=== PATIENT | male | born 1950 | race Caucasian/White ===

== ENCOUNTER 2020-02-23 16:00 | Inpatient (IN) | payer MEDICARE, OTHER ==
[~2020-02-23] VITALS: Ht 177.8 cm; Wt 79.4 kg
[~2020-02-23 16:00] MED LIST: CLOPIDOGREL75 MG PO; CO Q-10100 MG PO; OMEPRAZOLE20 M1 PO; TRIBENZOR 40-51 EAC1 PO; VITAMIN D35000 UNI1 PO; WELCHOL625 MG PO; ZETIA10 MG PO
[2020-02-23] MEDS ORDERED: ONDANSETRON HCL INJ 2MG/ML 2ML 2 MG/ML VIAL IV ONE (16:40)
[2020-02-23] MEDS ORDERED: SODIUM CHLORIDE 0.9% 1000ML 1,000 ML IV STA (16:40)
[2020-02-23] MEDS ORDERED: PANTOPRAZOLE 40 MG 10ML VIAL IV ONE (16:40)
[2020-02-23] MEDS ORDERED: CEFTRIAXONE SOD 1 GM/NS 50 ML 50 ML IV SCH (16:45)
[2020-02-23] MEDS ORDERED: AZITHROMYCIN 500MG/NS 250 ML 250 ML IV SCH (16:45)
[2020-02-23 17:50] LABS: BASOPHILS % 0.1 % (0.0-1.0); EOSINOPHILS % 0.3 % (0.0-6.0); HEMATOCRIT 45.7 % (38.2-49.6); HEMOGLOBIN 14.8 g/dL (14.0-18.0); LYMPHOCYTES # (AUTO) 0.4 (1.0-3.2); LYMPHOCYTES % 4.1 % (18.0-39.1); MEAN CORPUSCULAR HEMOGLOBIN 30.3 pg (28-32); MEAN CORPUSCULAR HGB CONC 32.4 g/dL (31-35); MEAN CORPUSCULAR VOLUME 93.6 fL (81-99); MONOCYTES # (AUTO) 0.3 (0.2-0.8); MONOCYTES % 3.8 % (4.4-11.3); NEUTROPHILS % 91.4 % (38.7-80.0); PLATELET COUNT 200 x10e3/uL (140-360); RED BLOOD COUNT 4.88 x10e6/uL (4.3-5.7)
[2020-02-23 17:59] LABS: INR 0.93; PARTIAL THROMBOPLASTIN TIME 23.3 seconds (23.8-35.5)
[2020-02-23 18:06] LABS: ALBUMIN 3.9 g/dL (3.5-5.0); ALBUMIN/GLOBULIN RATIO 1.1 (0.8-2.0); ANION GAP 13.1 mmol/L (8-16); CALCIUM 9.5 mg/dL (8.4-10.2); CREATININE, SERUM 1.29 mg/dL (0.72-1.25); MAGNESIUM 1.8 MG/DL (1.3-2.1); POTASSIUM 4.1 mmol/L (3.5-5.1)
[2020-02-23 18:13] LABS: CREATINE KINASE MB 1.2 ng/mL (0-5.0)
[2020-02-23 18:19] LABS: B-TYPE NATRIURETIC PEPTIDE2 85.4 pg/mL (0-100)
--- NOTE | 2020-02-23 18:54 | Diagnostic Imaging Report ---
EXAMINATION: CHEST SINGLE (PORTABLE) INDICATION: ^COUGH FEVER ^[id number] ^[id number] COMPARISON: None FINDINGS: AP view TUBES and LINES: None. LUNGS/PLEURA: Lungs are well inflated. Left basilar and cardiophrenic angle opacity could be due to pneumonia and/or effusion. HEART AND MEDIASTINUM: The cardiomediastinal silhouette is unremarkable. BONES AND SOFT TISSUES: No acute osseous lesion. Soft tissues are unremarkable. UPPER ABDOMEN: No free air under the diaphragm. IMPRESSION: Left basilar and cardiophrenic angle opacity could be due to pneumonia and/or effusion. Signed by: Salomón Minor MD on 02/23/2020 6:50 PM
--- NOTE | 2020-02-23 19:48 | Emergency Department Note ---
History of Present Illnes History of Present Illness Chief Complaint: COVID PUI History of Present Illness This is a 69 year old male FROM HOME WITH COMPLAINTS OF FEVER, CHILLS, AND DIARRHEA STARTING YESTERDAY; PATIENT REPORTS TAKING TYLENOL AT 1200 TODAY . Historian: Patient Arrival Mode: Car Onset (how long ago): day(s) (1) Location: NONE Quality: FEVER, WEAKNESS, DIARRHEA Radiation: Reports non-radiation Severity: mild Onset quality: sudden Duration (how long): day(s) (1) Timing of current episode: intermittent Progression: waxing and waning Chronicity: new Context: Denies recent illness, Denies recent surgery Relieving factors: none Exacerbating factors: none Associated symptoms: Reports cough, Reports fever/chills, Reports other (DI ARRHEA) Treatments prior to arrival: antipyretic Past Medical/Family History Physician Review I have reviewed the patient's past medical and family history. Any updates have been documented here. Past Medical History Recent Fever: Yes Clinical Suspicion of Infectio: Yes New/Unexplained Change in Ment: No Past Medical History: Hypertension, MD, GERD Past Surgical History: CABG Social History Smoking Cessation: Former smoker Alcohol Use: Social Any Illegal Drug Use: Yes TB Exposure/Symptoms: No Physically hurt or threatened: No Family History Family history of heart diseas: No Other family history HTN Other Last Tetanus: UNKNOWN Any Pre-Existing Lines (PICC,: No Is patient up to date on immun: Yes Last Flu: unknown Last Pneumovax: unknown Review of Systems Review of Systems Constitutional: Reports as per HPI EENTM: Reports no symptoms Cardiovascular: Reports no symptoms Respiratory: Reports as per HPI Gastrointestinal: Reports as per HPI Genitourinary: Reports no symptoms Musculoskeletal: Reports no symptoms Integumentary: Reports no symptoms Neurological: Reports no symptoms Psychological: Reports no symptoms Endocrine: Reports no symptoms Hematological/Lymphatic: Reports no symptoms Physical Exam Related Data Allergies: Coded Allergies: iodine (Verified Allergy, Mild, ITCHING, 04/29/16) Triage Vital Signs Vital Signs Date Time Temp Pulse Resp B/P (MAP) Pulse Ox O2 Delivery O2 Flow Rate FiO2 02/23/20 16:23 102.1 108 24 172/93 96 Vital signs reviewed: Yes Physical Exam CONSTITUTIONAL Constitutional: Present well-developed, Present well-nourished HENT HENT: Present normocephalic, Present atraumatic, Present oropharynx clear/moist, Present nose normal HENT L/R: Present left ext ear normal, Present right ext ear normal EYES Eyes: Reports PERRL, Reports conjunctivae normal NECK Neck: Present ROM normal PULMONARY Pulmonary: Present effort normal, Present breath sounds normal CARDIOVASCULAR Cardiovascular: Present regular rhythm, Present heart sounds normal, Present capillary refill normal, Present tachycardia (101) GASTROINTESTINAL Abdominal: Present soft, Present nontender, Present bowel sounds normal GENITOURINARY Genitourinary: Present exam deferred SKIN Skin: Present warm, Present dry MUSCULOSKELETAL Musculoskeletal: Present ROM normal NEUROLOGICAL Neurological: Present alert, Present oriented x 3, Present no gross motor or sensory deficits PSYCHOLOGICAL Psychological: Present mood/affect normal, Present judgement normal Results Laboratory Result Diagram: 02/23/20172902/23/201729 Laboratory Laboratory Tests Test 02/23/20 17:44 02/23/20 17:30 White Blood Count 8.77 x10e3/uL (4.8-10.8) Red Blood Count 4.88 x10e6/uL (4.3-5.7) Hemoglobin 14.8 g/dL (14.0-18.0) Hematocrit 45.7 % (38.2-49.6) Mean Corpuscular Volume 93.6 fL (81-99) Mean Corpuscular Hemoglobin 30.3 pg (28-32) Mean Corpuscular Hemoglobin Concent 32.4 g/dL (31-35) Red Cell Distribution Width 14.0 % (11.7-14.4) Platelet Count 200 x10e3/uL (140-360) Neutrophils (%) (Auto) 91.4 % (38.7-80.0) Lymphocytes (%) (Auto) 4.1 % (18.0-39.1) Monocytes (%) (Auto) 3.8 % (4.4-11.3) Eosinophils (%) (Auto) 0.3 % (0.0-6.0) Basophils (%) (Auto) 0.1 % (0.0-1.0) Neutrophils # (Auto) 8.0 (2.1-6.9) Lymphocytes # (Auto) 0.4 (1.0-3.2) Monocytes # (Auto) 0.3 (0.2-0.8) Eosinophils # (Auto) 0.0 (0.0-0.4) Basophils # (Auto) 0.0 (0.0-0.1) Absolute Immature Granulocyte (auto 0.03 x10e3/uL (0-0.1) Prothrombin Time 13.0 seconds (11.9-14.5) Prothromb Time International Ratio 0.93 Activated Partial Thromboplast Time 23.3 seconds (23.8-35.5) Sodium Level 137 mmol/L (136-145) Potassium Level 4.1 mmol/L (3.5-5.1) Chloride Level 108 mmol/L (98-107) Carbon Dioxide Level 20 mmol/L (22-29) Anion Gap 13.1 mmol/L (8-16) Blood Urea Nitrogen 20 mg/dL (7-26) Creatinine 1.29 mg/dL (0.72-1.25) Estimat Glomerular Filtration Rate 55 ML/MIN (60-) BUN/Creatinine Ratio 16 (6-25) Glucose Level 117 mg/dL (74-118) Lactic Acid Level 1.1 mmol/L (0.5-2.0) Calcium Level 9.5 mg/dL (8.4-10.2) Magnesium Level 1.8 MG/DL (1.3-2.1) Total Bilirubin 0.5 mg/dL (0.2-1.2) Aspartate Amino Transf (AST/SGOT) 17 IU/L (5-34) Alanine Aminotransferase (ALT/SGPT) 17 IU/L (0-55) Alkaline Phosphatase 37 IU/L (40-150) Creatine Kinase 85 IU/L (30-200) Creatine Kinase MB 1.20 ng/mL (0-5.0) Troponin I 0.023 ng/mL (0-0.300) B-Type Natriuretic Peptide 85.4 pg/mL (0-100) Total Protein 7.6 g/dL (6.5-8.1) Albumin 3.9 g/dL (3.5-5.0) Globulin 3.7 g/dL (2.3-3.5) Albumin/Globulin Ratio 1.1 (0.8-2.0) Lab results reviewed: Yes Laboratory comments COVID 19 TEST NEGATIVE Imaging Imaging results reviewed: Yes Impressions EXAMINATION: CHEST SINGLE (PORTABLE) INDICATION: ^COUGH FEVER ^[id number] ^[id number] COMPARISON: None FINDINGS: AP view TUBES and LINES: None. LUNGS/PLEURA: Lungs are well inflated. Left basilar and cardiophrenic angle opacity could be due to pneumonia and/or effusion. HEART AND MEDIASTINUM: The cardiomediastinal silhouette is unremarkable. BONES AND SOFT TISSUES: No acute osseous lesion. Soft tissues are unremarkable. UPPER ABDOMEN: No free air under the diaphragm. IMPRESSION: Left basilar and cardiophrenic angle opacity could be due to pneumonia and/or effusion. Signed by: Salomón Mosher MD on 02/23/2020 6:50 PM Dictated By: SALOMÓN MOSHER MD 49 Transcribed By: IMER on 02/23/201849 Procedures 12 Lead ECG Interpretation ECG Interpretation : ECG: ECG 1 Personal Fitness Trainer: Interpreted by ED physician Date: Feb 23, 2020 Time: 19:01 Rhythm: sinus tachycardia Ectopy: frequent PVC's Rate: tachycardia BPM: 107 QRS axis: normal ST segments normal: Yes T waves normal: Yes Q waves: III, V1 Clinical Impression: abnormal ECG Assessment & Plan Medical Decision Making MDM PT WITH FEVER, CHILLS, DIARRHEA, AND DRY COUGH CBC, CMP, EKG, CXR, LACTIC ACID, CARDIAC ENZYMES, COVID 19, BLOOD CULTURE, UA, URINE CULTURE ORDERED TO EVAL FOR PNEUMONIA, COVID 19, MYOCARDIAL INFARCTION, U TI, ELECTROLYTE ABNORMALITY ROCEPHIN 1 GRAM IV ORDERED ZITHROMAX 500 MG IV ORDERED 1 LITER NS IV BOLUS ORDERED INITIAL LACTIC ACID 1.1 PT WITH PNEUMONIA, I SPOKE WITH DR VU, ADMIT TO INPATIENT Assessment & Plan Final Impression: (1) Fever (2) Diarrhea (3) Pneumonia Depart Disposition: HOME, SELF-CARE Last Vital Signs Date Time Temp Pulse Resp B/P (MAP) Pulse Ox O2 Delivery O2 Flow Rate FiO2 02/23/20 17:54 100.0 99 18 156/77 97 Home Meds Reported Medications Omeprazole (OMEPRAZOLE) 20 Mg Tablet., 20 MG PO DAILY 04/30/16 Ubidecarenone (CO Q-10) 100 Mg Capsule, 100 MG PO DAILY 04/30/16 Cholecalciferol (Vitamin D3) (VITAMIN D3) 5,000 Unit Tablet, 1 TAB PO DAILY 04/30/16 Ezetimibe (ZETIA) 10 Mg Tablet, 10 MG PO DAILY, #30 TAB 04/30/16 Colesevelam Hcl (WELCHOL) 625 Mg Tablet, 625 MG PO DAILY, #30 TAB 04/30/16 Olmesartan Med/Amlodipine/Hctz (TRIBENZOR 40-5-25 MG TABLET) 1 Each Tablet, 1 TAB PO DAILY 04/30/16 Clopidogrel Bisulfate (CLOPIDOGREL) 75 Mg Tablet, 75 MG PO DAILY, #30 TAB 04/30/16 Medications in the ED Pantoprazole Sodium 40 mg ONCE ONCE IV Last administered on 02/23/20at 19:00; Admin Dose 40 MG; Start 02/23/20 at 16:40; Stop 02/23/20 at 16:52; Status DC Ondansetron HCl 4 mg ONCE ONCE IV Last administered on 02/23/20 19:10; Admin Dose 4 MG; Start 02/23/20 at 16:40; Stop 02/23/20 at 16:52; Status DC Sodium Chloride 1,000 ml @ 0 mls/hr Q0M STAT IV Last administered on 02/23/20 19:15; Admin Dose 1,000 MLS/HR; Start 02/23/20 at 16:40; Stop 02/23/20 at 16:52; Status DC Ceftriaxone Sodium 50 ml @ 100 mls/hr Q24H IV Last administered on 02/23/20at 19:32; Admin Dose 100 MLS/HR; Start 02/23/20 at 16:45; Stop 03/01/20 at 16:44 Azithromycin 250 ml @ 200 mls/hr DAILY IV ; Start 02/23/20 at 16:45; Stop 03/01/20 at 16:44 MADAI FLORES MD Feb 23, 2020 19:47
[2020-02-23] MEDS ORDERED: ACETAMINOPHEN 325 MG TAB PO PRN (22:45)
[2020-02-23] MEDS ORDERED: SODIUM CHLORIDE 0.9% 1000ML 1,000 ML IV SCH (22:45)
[2020-02-23 23:31] LABS: BILIRUBIN,URINE NEGATIVE (NEGATIVE); CLARITY,URINE CLEAR (CLEAR); COLOR,URINE YELLOW (YELLOW); KETONES,URINE NEGATIVE (NEGATIVE); LEUKOCYTE ESTERASE ,URINE NEGATIVE (NEGATIVE); NITRITE,URINE NEGATIVE (NEGATIVE); URINE UROBILINOGEN 0.2 mg/dL (0.2 - 1)
[2020-02-23 23:32] LABS: PROTEIN,URINE DIPSTICK >=300 (NEGATIVE)
[2020-02-23 23:43] LABS: BACTERIA,URINE MANY /HPF; EPITHELIAL CELLS,URINE FEW /LPF; MUCUS,URINE FEW (RARE)
[2020-02-24] VITALS (9 sets, daily range): BP systolic 94–136; BP diastolic 45–84
[2020-02-24] MEDS ORDERED: SODIUM CHLORIDE 0.9% 1000ML 1,000 ML IV ONE (00:15)
--- NOTE | 2020-02-24 01:30 | NUR ---
Patient received from ER via stretcher. AAO x 3. Patient had no complaints of pain. Respirations even and non-labored. Admission history obtained. Initial physical assessment performed. Patient oriented to room, call light and plan of care. Safety measures implemented. Patient instructed to call for assistance when needed. Call light within reach.
[2020-02-24] MEDS ORDERED: MONTELUKAST SOD10 MG PO (03:15)
[2020-02-24] MEDS ORDERED: METOPROLOL SUCC25 MG PO (03:15)
[2020-02-24] MEDS ORDERED: COQ-10100 MG PO (03:15)
[2020-02-24] MEDS ORDERED: ALLOPURINOL300 MG PO (03:15)
[2020-02-24] MEDS ORDERED: DEXILANT60 MG PO (03:15)
[2020-02-24] MEDS ORDERED: LISINOPRIL10 MG PO (03:15)
[2020-02-24] MEDS ORDERED: ASPIRIN325 MG PO (03:15)
[2020-02-24] MEDS ORDERED: FENOFIBRATE145 MG PO (03:15)
[2020-02-24] MEDS ORDERED: XYZAL5 MG PO (03:15)
[2020-02-24] MEDS ORDERED: FUROSEMIDE40 MG PO (03:15)
--- NOTE | 2020-02-24 07:00 | NUR ---
Walking rounds done. Patient resting comfortably. Shift report given to oncoming nurse.
--- NOTE | 2020-02-24 07:00 | NUR ---
Received bedside shift from off going night nurse. patient in stable condition, no s/s of distress noted. Telemetry applied.Bed in lowest position and locked. Call light within reach.
[2020-02-24 07:01] LABS: BASOPHILS % 0.3 % (0.0-1.0); EOSINOPHILS % 0.5 % (0.0-6.0); HEMATOCRIT 39.2 % (38.2-49.6); HEMOGLOBIN 12.4 g/dL (14.0-18.0); LYMPHOCYTES # (AUTO) 0.6 (1.0-3.2); LYMPHOCYTES % 10.4 % (18.0-39.1); MEAN CORPUSCULAR HEMOGLOBIN 30.2 pg (28-32); MEAN CORPUSCULAR HGB CONC 31.6 g/dL (31-35); MEAN CORPUSCULAR VOLUME 95.4 fL (81-99); MONOCYTES # (AUTO) 0.3 (0.2-0.8); MONOCYTES % 5.6 % (4.4-11.3); NEUTROPHILS # (AUTO) 4.9 (2.1-6.9); NEUTROPHILS % 82.9 % (38.7-80.0); PLATELET COUNT 156 x10e3/uL (140-360); RED BLOOD COUNT 4.11 x10e6/uL (4.3-5.7); RED CELL DISTRIBUTION WIDTH 14.1 % (11.7-14.4)
[2020-02-24 07:26] LABS: ANION GAP 9.1 mmol/L (8-16); CALCIUM 8.2 mg/dL (8.4-10.2); CREATININE, SERUM 1.23 mg/dL (0.72-1.25); POTASSIUM 4.1 mmol/L (3.5-5.1)
[2020-02-24 07:46] LABS: CREATINE KINASE MB 1.8 ng/mL (0-5.0)
[2020-02-24] MEDS: AZITHROMYCIN 500MG/SOD CHL 0.9% 250ML BAG IV SCH ×2 (09:00→10:00)
[2020-02-24] MEDS: CEFTRIAXONE SOD 1 GRAM/0.9% SOD CHL 50ML BAG IV SCH (10:13)
[2020-02-24 14:50] LABS: CREATINE KINASE MB 1.8 ng/mL (0-5.0)
[2020-02-24] MEDS: SODIUM CHLORIDE 0.9% 1000ML 1,000 ML IV SCH (15:44)
--- NOTE | 2020-02-24 19:11 | NUR ---
Completed bedside shift report and rounding with on coming night nurse. Patient in stable condition, no s/s of distress noted. No pain voiced. IV fluids infusing, site asymptomatic and patent, transparent dressing applied C/D/I. SCDs applied. Telemetry applied. Bed in lowest position and locked. Call light within reach.
--- NOTE | 2020-02-24 19:19 | NUR ---
Patient received sitting up in bed. AAO x 4. Patient had no complaints of pain or respiratory distress. Fall precautions in place. IVF infusing at 70 cc/hr. Patient instructed to call for assistance when needed. Call light within reach.
--- NOTE | 2020-02-24 21:46 | History and Physical ---
HISTORY OF PRESENT ILLNESS: A 69-year-old gentleman came into the hospital with cough, congestion, chills, body aches, and was tested negative for COVID, was admitted to the hospital for pneumonia. The patient is currently asymptomatic. Fever and chills have dissipated. No chest pain at this time. He has history of coronary artery disease. MEDICATIONS: Include allopurinol 300 mg daily, aspirin 325 mg daily, clopidogrel 75 mg daily, Welchol 625 mg daily, Dexilant 60 mg daily, fenofibrate 145, furosemide 40, levocetirizine 5 mg daily, lisinopril 20 mg daily, metoprolol 25 mg extended release daily, montelukast 10 mg daily, and CoQ10 of 200 mg daily. SOCIAL HISTORY: No EtOH. No IV drug abuse. History of smoking in the past, otherwise currently nonsmoker. MEDICAL HISTORY: Includes gouty arthritis, history of coronary artery disease, history of congestive heart failure, history of hyperlipidemia, history of hypertension, and history of reflux esophagitis, also with allergic symptoms. REVIEW OF SYSTEMS: Negative for chest pain. Positive for fatigue. Positive for fever. Positive for chills. Positive for rhinorrhea. Positive for body aches. No chest pain. No shortness of breath. No nausea. No vomiting. No diarrhea or constipation. No rectal bleeding. PHYSICAL EXAMINATION: GENERAL: The patient is alert and oriented x3. VITAL SIGNS: Temperature is 99.7, pulse of 96, respirations of 16, blood pressure is 122/66, pulse oximetry of 98% on room air. HEENT: Normocephalic and atraumatic. Pupils are reactive to light and accommodation. CVS: S1 and S2 are normal. Regular rate and rhythm. LUNGS: Decreased air entry into all willson. Positive for rhonchi on the right side. EXTREMITIES: No clubbing. No cyanosis. Trace amount of edema. LABORATORY VALUES: White count is 8.77, hemoglobin of 14.8, hematocrit of 45.7, platelet count of 200, neutrophil count is 91.4. There is a left shift present. Chemistry shows sodium of 135, potassium 4.1, BUN of 17, creatinine of 1.23, eGFR of 50%. CK, CK-MB, and troponins have all been trended negative. One more set is pending although. Alkaline phosphatase is . SEROLOGY: Coronavirus is not detected. MICROBIOLOGY: Urine had many bacteria, nitrites is negative, and leukocyte esterase negative. IMAGING STUDIES: Chest x-ray shows left basilar and cardiophrenic angle opacity, could be pneumonia or effusion. ASSESSMENT: Mr. Cristóbal Hernández with. 1. Pneumonia by x-ray. 2. Acute febrile illness. 3. History of coronary artery disease. 4. Hypertension. 5. History of hyperlipidemia. 6. History of coronary artery disease with stents. PLAN: Currently, the patient is on IV Rocephin and azithromycin. We will keep him on the same. Restart all his home medications. Continue with monitoring the patient. Fever is very low-grade at this time. The patient is currently on 125 mL an hour of sodium chloride. We will cut that down to 75 mL. Check a chest x-ray tomorrow again. Continue to monitor the patient. Further recommendation per clinical course. Possible discharge tomorrow depending on the clinical progression of the patient. MD MADDIE Herbert/MODL /[id number]
[2020-02-25] VITALS (7 sets, daily range): BP systolic 123–167; BP diastolic 62–86
[2020-02-25] MEDS: GUAIFENESIN/CODEINE 10 ML CUP PO PRN ×2 (00:41→23:03)
[2020-02-25 06:12] LABS: ANION GAP 10.6 mmol/L (8-16); BLOOD UREA NITROGEN 12 mg/dL (7-26); BUN/CREATININE RATIO 12 (6-25); CALCIUM 8.3 mg/dL (8.4-10.2); CARBON DIOXIDE 19 mmol/L (22-29); CHLORIDE 111 mmol/L (98-107); CREATININE, SERUM 0.97 mg/dL (0.72-1.25); EST GLOMERULAR FILTRATION RATE > 60 ML/MIN (60-); GLUCOSE 92 mg/dL (74-118); MAGNESIUM 1.7 MG/DL (1.3-2.1); POTASSIUM 3.6 mmol/L (3.5-5.1); SODIUM 137 mmol/L (136-145)
--- NOTE | 2020-02-25 07:00 | NUR ---
Received bedside shift from off going night nurse. patient in stable condition, no s/s of distress noted. Telemetry applied. IV fluids infusing, site patent asymptomatic, transparent dressing applied C/D/I. Bed in lowest position and locked. Call light within reach.
--- NOTE | 2020-02-25 07:00 | NUR ---
Shift report given to oncoming nurse.
--- NOTE | 2020-02-25 07:54 | Diagnostic Imaging Report ---
EXAMINATION: PA and lateral views of the chest. COMPARISON: Portable chest 02/23/2020 CLINICAL HISTORY: Pneumonia, diarrhea, fever DISCUSSION: Lines/tubes: None. Lungs: The lungs are well inflated. Interval worsening of left lower lobe and lingular linear opacities and interval development of right lower lobe linear opacities, likely reflecting subsegmental atelectasis. There is no evidence of consolidation or pulmonary edema. Pleura: There is no pleural effusion or pneumothorax. Heart and mediastinum: Cardiomediastinal silhouette is unremarkable. Pulmonary vasculature is normal. Bones and soft tissues: No acute bony abnormalities. Degenerative changes in the thoracic spine. Midline sternotomy wires. IMPRESSION: Bilateral lower lobe and lingular subsegmental atelectasis. Signed by: Dr. Andrae Sarabia M.D. on 02/25/2020 7:51 AM
[2020-02-25] MEDS: CEFTRIAXONE SOD 1 GRAM/0.9% SOD CHL 50ML BAG IV SCH (08:59)
[2020-02-25] MEDS ORDERED: LISINOPRIL 10 MG TAB PO SCH (09:00)
[2020-02-25] MEDS: PANTOPRAZOLE SOD 40 MG TABEC PO SCH (09:01)
[2020-02-25] MEDS: ASPIRIN 325 MG TAB PO SCH (09:02)
[2020-02-25] MEDS: COLESEVELAM HCL 625 MG TAB PO SCH (09:02)
[2020-02-25] MEDS: LISINOPRIL 20 MG TAB PO SCH (09:03)
[2020-02-25] MEDS: LORATADINE 10 MG TAB PO SCH (09:03)
[2020-02-25] MEDS: FUROSEMIDE 40 MG TAB PO SCH (09:03)
[2020-02-25] MEDS: CLOPIDOGREL BISULFATE 75 MG TAB PO SCH (09:03)
[2020-02-25] MEDS: MONTELUKAST SODIUM 10 MG TAB PO SCH (09:04)
[2020-02-25] MEDS: FENOFIBRATE 145 MG TAB PO SCH (09:04)
[2020-02-25] MEDS: METOPROLOL SUCCINATE 25 MG TAB XL PO SCH (09:04)
[2020-02-25] MEDS: ALLOPURINOL 300 MG TAB PO SCH (09:05)
[2020-02-25] MEDS: AZITHROMYCIN 500MG/SOD CHL 0.9% 250ML BAG IV SCH (10:00)
--- NOTE | 2020-02-25 21:22 | Progress Note ---
DATE: SUBJECTIVE: A 69-year-old male with a history of cough and congestion, came in with pneumonia. Repeat chest x-ray shows atelectasis and pneumonic process at this time, but the patient still feels shortness of breath. The patient's COVID test was negative. The patient has all symptoms of fever, congestion, body aches and also sudden exacerbation of these symptoms. OBJECTIVE: VITAL SIGNS: Temperature is 97.7, pulse 56, respirations of 20, blood pressure is 123/66, pulse oximetry of 98%. HEENT: Normocephalic and atraumatic. Pupils reactive. CVS: S1 and S2 normal. Regular rate and rhythm. LUNGS: Decreased air entry into lung bases. Positive for some crackles at lung bases. EXTREMITIES: No clubbing, no cyanosis, no edema. LABORATORY VALUES: White count has been normal at 5.94. Chemistries; today's 137 sodium, potassium 3.6, BUN of 12 and creatinine 0.97. Serology; coronavirus not detected. IMAGING STUDIES: Done from today shows chest x-ray shows atelectasis bilaterally and pneumonic process. ASSESSMENT: Mr. Cristóbal Hernández is a 69-year-old patient with: 1. Possible pneumonia. 2. Atelectasis. 3. Viral syndrome. PLAN: Okay to discharge home. Z-Ash will be given. The patient can be discharged tomorrow morning. Further recommendation per clinical course. We will restart all oral medication and I will be seeing the patient back in the clinic in about a weeks' time. MD MADDIE Herbert/MODL /[id number]
--- NOTE | 2020-02-25 22:02 | NUR ---
Patient received lying in bed. AAO x 4. Patient had no complaints of pain. Respirations even and non-labored. Safety measures in place. Patient instructed to call for assistance when needed. Call light within reach.
[2020-02-25] MEDS: SODIUM CHLORIDE 0.9% 1000ML 1,000 ML IV SCH (23:03)
[2020-02-26 00:20] VITALS: BP 136/63
[2020-02-26 04:00] VITALS: BP 125/60
--- NOTE | 2020-02-26 07:00 | NUR ---
BEDSIDE SHIFT REPORT RECEIVED FROM SENIOR ELECTRONICS ENGINEER RN. PT DENIES NEEDS AT THIS TIME.
[2020-02-26] MEDS: SODIUM CHLORIDE 0.9% 1000ML 1,000 ML IV SCH ×2 (07:04→09:14)
[2020-02-26 08:17] VITALS: BP 150/59
[2020-02-26] MEDS: CEFTRIAXONE SOD 1 GRAM/0.9% SOD CHL 50ML BAG IV SCH (09:12)
[2020-02-26] MEDS: CLOPIDOGREL BISULFATE 75 MG TAB PO SCH (09:12)
[2020-02-26] MEDS: LORATADINE 10 MG TAB PO SCH (09:12)
[2020-02-26] MEDS: COLESEVELAM HCL 625 MG TAB PO SCH (09:12)
[2020-02-26] MEDS: ASPIRIN 325 MG TAB PO SCH (09:12)
[2020-02-26] MEDS: PANTOPRAZOLE SOD 40 MG TABEC PO SCH (09:12)
[2020-02-26] MEDS: FUROSEMIDE 40 MG TAB PO SCH (09:12)
[2020-02-26] MEDS: LISINOPRIL 20 MG TAB PO SCH (09:13)
[2020-02-26] MEDS: FENOFIBRATE 145 MG TAB PO SCH (09:13)
[2020-02-26] MEDS: MONTELUKAST SODIUM 10 MG TAB PO SCH (09:13)
[2020-02-26] MEDS: ALLOPURINOL 300 MG TAB PO SCH (09:13)
[2020-02-26] MEDS: METOPROLOL SUCCINATE 25 MG TAB XL PO SCH (09:13)
[2020-02-26 09:17] VITALS: BP 150/59
[2020-02-26 12:07] VITALS: BP 140/69
== END 2020-02-26 12:00 | disposition home or self-care (01) | DRG 195 ==
LOC: ER 16:00 → ERHOLD 22:45 → MED/SURG2 02-24 01:02
PROVIDERS: ADMIT Family Medicine; ATTEND Family Medicine
DX: J18.9 Pneumonia, unspecified organism (principal); Z11.59 Encounter for screening for other viral diseases; I25.10 Atherosclerotic heart disease of native coronary artery without angina pectoris
CPT/HCPCS: 36415; 71045; 71046; 80048; 80053; 81001; 82550; 82553; 83605; 83735; 83880; 84484; 85025; 85610; 85730; 87040; 87086; 87635; 93005; 99284; J0456; J0696; J2405; J7030

== ENCOUNTER → 2020-08-21 | Outpatient (CLI) | payer MEDICARE, OTHER ==
[~2020-08-21] MED LIST changes: +ALLOPURINOL300 MG PO; +ASPIRIN325 MG PO; +COQ-10100 MG PO; +DEXILANT60 MG PO; +FENOFIBRATE145 MG PO; +FUROSEMIDE40 MG PO; +LISINOPRIL10 MG PO; +METOPROLOL SUCC25 MG PO; +MONTELUKAST SOD10 MG PO; +XYZAL5 MG PO
== END ==
LOC: DX 09:27
PROVIDERS: ATTEND Family Medicine
DX: R13.11 Dysphagia, oral phase (principal); Z20.828 Contact with and (suspected) exposure to other viral communicable diseases
CPT/HCPCS: 74220; U0002

== ENCOUNTER → 2021-07-11 | Outpatient (CLI) | payer MEDICARE ==
[~2021-07-11] MED LIST changes: +IOPAMIDOL 370 MG/ML 200 ML INFUS..BTL INJ ONE; +SODIUM CHLORIDE 0.9% 100 ML ONE; +SODIUM CHLORIDE 0.9% 500ML 500 ML ONE
[2021-07-11 08:45] LABS: CREATININE, SERUM 1.61 mg/dL (0.72-1.25)
== END ==
LOC: CT 08:11
PROVIDERS: ATTEND Nurse Practitioner Family
DX: I71.4 Abdominal aortic aneurysm, without rupture (principal)
CPT/HCPCS: 36415; 74174; 82565; 84520; 96360; J7040; J7050; Q9967

== ENCOUNTER 2025-02-06 16:51 | Inpatient (IN) | payer MEDICARE, OTHER ==
[~2025-02-06] VITALS: Ht 172.7 cm; Wt 85.5 kg
[~2025-02-06 16:51] MED LIST changes: -IOPAMIDOL 370 MG/ML 200 ML INFUS..BTL INJ ONE; -SODIUM CHLORIDE 0.9% 100 ML ONE; -SODIUM CHLORIDE 0.9% 500ML 500 ML ONE
[2025-02-06 17:27] LABS: BASOPHILS # (AUTO) 0.1 (0.0-0.1); BASOPHILS % 0.6 % (0.0-1.0); EOSINOPHILS % 12.2 % (0.0-6.0); HEMATOCRIT 46.1 % (38.2-49.6); LYMPHOCYTES # (AUTO) 1.7 (1.0-3.2); LYMPHOCYTES % 21.7 % (18.0-39.1); MEAN CORPUSCULAR HEMOGLOBIN 32.2 pg (28-32); MEAN CORPUSCULAR HGB CONC 32.5 g/dL (31-35); MEAN CORPUSCULAR VOLUME 98.9 fL (81-99); MONOCYTES # (AUTO) 0.7 (0.2-0.8); MONOCYTES % 8.8 % (4.4-11.3); NEUTROPHILS # (AUTO) 4.4 (2.1-6.9); NEUTROPHILS % 56.2 % (38.7-80.0); PLATELET COUNT 210 x10e3/uL (140-360); RED BLOOD COUNT 4.66 x10e6/uL (4.3-5.7); RED CELL DISTRIBUTION WIDTH 14.7 % (11.7-14.4); WHITE BLOOD COUNT 7.84 x10e3/uL (4.8-10.8)
[2025-02-06 17:40] LABS: ALBUMIN 3.9 g/dL (3.5-5.0); ANION GAP 14.2 mmol/L (8-16); BILIRUBIN,TOTAL 0.4 mg/dL (0.2-1.2); CALCIUM 9.2 mg/dL (8.4-10.2); CREATININE, SERUM 1.8 mg/dL (0.72-1.25); POTASSIUM 4.2 mmol/L (3.5-5.1)
[2025-02-06 18:08] LABS: INR 0.87; PARTIAL THROMBOPLASTIN TIME 27.7 seconds (23.8-35.5); PROTHROMBIN TIME 12.7 seconds (11.9-14.5)
[2025-02-06] MEDS: SODIUM CHLORIDE 0.9% 1000ML 1,000 ML IV ONE (21:28)
[2025-02-06] MEDS: ACETAMINOPHEN 325 MG TAB PO PRN (21:29)
[2025-02-06 21:50] VITALS: BP_SYST 134; BP_SYST 150; BP_DIAS 75; BP_DIAS 91; PULSE 71; PULSE 72; RESP 16; RESP 20; TEMP 97.7; TEMP 97.9; O2SAT 99
[2025-02-06] MEDS: ALBUTEROL SULF 0.083% NEB SOLN 3 ML NEB NEB SCH (22:09)
[2025-02-06] MEDS: IPRATROPIUM BROMIDE 0.02% 2.5 ML NEB NEB SCH (22:14)
[2025-02-06 22:15] VITALS: PULSE 74; RESP 18; O2SAT 96
[2025-02-06] MEDS ORDERED: ASPIRIN81 MG PO (22:36)
[2025-02-06] MEDS ORDERED: METOPROLOL SUCC50 MG PO (22:36)
[2025-02-06] MEDS ORDERED: MELATONIN3 MG PO (22:52)
[2025-02-06] MEDS ORDERED: FLONASE SENSIM5.9 ML (22:52)
[2025-02-06] MEDS ORDERED: BENADRYL25 M1 PO (22:52)
[2025-02-06] MEDS ORDERED: SPIRIVA RESPIMAT4 GM INH (22:52)
[2025-02-06] MEDS ORDERED: OLMESARTAN-HCT1 EAC2 PO (22:52)
[2025-02-06] MEDS ORDERED: WIXELA 250-501 EACH PO (22:52)
[2025-02-06] MEDS ORDERED: REPATHA SY140 MG/1 M IM (22:52)
[2025-02-06] MEDS ORDERED: FERROUS SULFAT325 MG PO (22:52)
[2025-02-06] MEDS ORDERED: OMEPRAZOLE40 MG PO (22:52)
[2025-02-06] MEDS ORDERED: COENZYME Q-10100 MG PO (22:52)
[2025-02-06] MEDS ORDERED: VITAMIN D250 MCG PO (22:52)
[2025-02-06] MEDS ORDERED: ICOSAPENT ETHYL1 GM PO (22:52)
[2025-02-06] MEDS ORDERED: PROBIOTIC1 EAC1 PO (22:52)
[2025-02-06] MEDS ORDERED: NASAL SPRAY30 M1 (22:52)
[2025-02-06 23:03] LABS: TROPONIN I 0.006 ng/mL (0-0.300)
[2025-02-07] VITALS (15 sets, daily range): BP systolic 107–152; BP diastolic 63–96; PULSE 73–114; RESP 16–20; TEMP 97.4–98; O2SAT 93–100
[2025-02-07 05:24] LABS: BASOPHILS # (AUTO) 0.1 (0.0-0.1); BASOPHILS % 0.7 % (0.0-1.0); EOSINOPHILS % 14.3 % (0.0-6.0); HEMATOCRIT 41.4 % (38.2-49.6); HEMOGLOBIN 13.4 g/dL (14.0-18.0); LYMPHOCYTES # (AUTO) 1.9 (1.0-3.2); LYMPHOCYTES % 27.5 % (18.0-39.1); MEAN CORPUSCULAR HEMOGLOBIN 32.1 pg (28-32); MEAN CORPUSCULAR HGB CONC 32.4 g/dL (31-35); MEAN CORPUSCULAR VOLUME 99.3 fL (81-99); MONOCYTES # (AUTO) 0.7 (0.2-0.8); MONOCYTES % 10.5 % (4.4-11.3); NEUTROPHILS # (AUTO) 3.2 (2.1-6.9); NEUTROPHILS % 46.4 % (38.7-80.0); PLATELET COUNT 164 x10e3/uL (140-360); RED BLOOD COUNT 4.17 x10e6/uL (4.3-5.7); RED CELL DISTRIBUTION WIDTH 14.6 % (11.7-14.4); WHITE BLOOD COUNT 6.97 x10e3/uL (4.8-10.8)
[2025-02-07 05:50] LABS: ALBUMIN 3.3 g/dL (3.5-5.0); ANION GAP 14.5 mmol/L (8-16); BILIRUBIN,TOTAL 0.4 mg/dL (0.2-1.2); CREATININE, SERUM 1.48 mg/dL (0.72-1.25); POTASSIUM 4.5 mmol/L (3.5-5.1); TOTAL PROTEIN 6.6 g/dL (6.5-8.1)
[2025-02-07 06:12] LABS: TROPONIN I 0.011 ng/mL (0-0.300)
[2025-02-07 14:17] LABS: TROPONIN I 0.005 ng/mL (0-0.300)
[2025-02-07] MEDS ORDERED: FUROSEMIDE 40 MG TAB PO PRN (18:15)
[2025-02-07] MEDS: SALMETEROL XINAF/FLUTICASONE 250/50 MCG INHALER INH SCH (19:45)
[2025-02-07] MEDS: PANTOPRAZOLE SOD 40 MG TABEC PO SCH (21:00)
[2025-02-07] MEDS: FERROUS SULFATE 325 MG TAB PO SCH (21:00)
[2025-02-07] MEDS: MELATONIN 3 MG TAB PO SCH (21:02)
[2025-02-08] VITALS (16 sets, daily range): BP systolic 117–155; BP diastolic 65–85; PULSE 69–101; RESP 18–20; TEMP 97.5–98.2; O2SAT 94–100
[2025-02-08] MEDS: GUAIFENESIN 200 MG/10 ML UDC PO PRN (01:55)
[2025-02-08 04:59] LABS: BASOPHILS # (AUTO) 0.1 (0.0-0.1); BASOPHILS % 0.7 % (0.0-1.0); EOSINOPHILS # (AUTO) 0.9 (0.0-0.4); EOSINOPHILS % 11.9 % (0.0-6.0); HEMATOCRIT 39.3 % (38.2-49.6); HEMOGLOBIN 12.6 g/dL (14.0-18.0); LYMPHOCYTES # (AUTO) 1.6 (1.0-3.2); LYMPHOCYTES % 21.5 % (18.0-39.1); MEAN CORPUSCULAR HEMOGLOBIN 32.3 pg (28-32); MEAN CORPUSCULAR HGB CONC 32.1 g/dL (31-35); MEAN CORPUSCULAR VOLUME 100.8 fL (81-99); MONOCYTES # (AUTO) 0.6 (0.2-0.8); MONOCYTES % 8.1 % (4.4-11.3); NEUTROPHILS # (AUTO) 4.3 (2.1-6.9); NEUTROPHILS % 57.3 % (38.7-80.0); PLATELET COUNT 173 x10e3/uL (140-360); RED CELL DISTRIBUTION WIDTH 14.6 % (11.7-14.4); WHITE BLOOD COUNT 7.41 x10e3/uL (4.8-10.8)
[2025-02-08 05:22] LABS: ALBUMIN 3.2 g/dL (3.5-5.0); ALBUMIN/GLOBULIN RATIO 1.1 (0.8-2.0); ANION GAP 13.5 mmol/L (8-16); BILIRUBIN,TOTAL 0.6 mg/dL (0.2-1.2); CALCIUM 8.8 mg/dL (8.4-10.2); CREATININE, SERUM 1.19 mg/dL (0.72-1.25); POTASSIUM 4.5 mmol/L (3.5-5.1); TOTAL PROTEIN 6.2 g/dL (6.5-8.1)
[2025-02-08] MEDS: ICOSAPENT ETHYL 1 GM CAPSULE PO SCH (09:00)
[2025-02-08] MEDS: HYDROCHLOROTHIAZIDE 25 MG TAB PO SCH (09:23)
[2025-02-08] MEDS: METOPROLOL SUCCINATE 50 MG TAB XL PO SCH (09:23)
[2025-02-08] MEDS: ASPIRIN 81 MG CHEW TAB PO SCH (09:23)
[2025-02-08] MEDS: DIPHENHYDRAMINE HCL 25 MG CAP PO SCH (09:24)
[2025-02-08] MEDS: ALLOPURINOL 300 MG TAB PO SCH (09:24)
[2025-02-08] MEDS: OLMESARTAN 20 MG TAB PO SCH (09:24)
[2025-02-09] VITALS (10 sets, daily range): BP systolic 129–145; BP diastolic 65–86; PULSE 68–85; RESP 18–22; TEMP 97.7–97.9; O2SAT 96–100
[2025-02-09 05:17] LABS: BASOPHILS # (AUTO) 0.1 (0.0-0.1); BASOPHILS % 0.8 % (0.0-1.0); EOSINOPHILS # (AUTO) 0.9 (0.0-0.4); EOSINOPHILS % 14.7 % (0.0-6.0); HEMATOCRIT 39.8 % (38.2-49.6); HEMOGLOBIN 13.1 g/dL (14.0-18.0); LYMPHOCYTES # (AUTO) 1.4 (1.0-3.2); LYMPHOCYTES % 22.3 % (18.0-39.1); MEAN CORPUSCULAR HEMOGLOBIN 32.3 pg (28-32); MEAN CORPUSCULAR HGB CONC 32.9 g/dL (31-35); MONOCYTES # (AUTO) 0.5 (0.2-0.8); MONOCYTES % 7.3 % (4.4-11.3); NEUTROPHILS # (AUTO) 3.5 (2.1-6.9); NEUTROPHILS % 54.4 % (38.7-80.0); PLATELET COUNT 189 x10e3/uL (140-360); RED BLOOD COUNT 4.06 x10e6/uL (4.3-5.7); RED CELL DISTRIBUTION WIDTH 14.5 % (11.7-14.4)
[2025-02-09 06:06] LABS: ALBUMIN 3.3 g/dL (3.5-5.0); ALBUMIN/GLOBULIN RATIO 1.1 (0.8-2.0); ANION GAP 13.4 mmol/L (8-16); BILIRUBIN,TOTAL 0.5 mg/dL (0.2-1.2); CALCIUM 9.1 mg/dL (8.4-10.2); CREATININE, SERUM 1.22 mg/dL (0.72-1.25); POTASSIUM 4.4 mmol/L (3.5-5.1); TOTAL PROTEIN 6.4 g/dL (6.5-8.1)
[2025-02-09] MEDS ORDERED: AZITHROMYCIN 250 MG TAB PO SCH (21:00)
[2025-02-10 16:11] LABS: cANCA TITER <1:20 titer (Neg:<1:20)
[2025-02-10 16:31] LABS: ATYPICAL pANCA TITER <1:20 titer (Neg:<1:20); pANCA TITER <1:20 titer (Neg:<1:20)
== END 2025-02-09 20:30 | disposition home or self-care (01) | DRG 194 ==
LOC: ER 18:04 → ERHOLD 20:41 → MED/SURG 21:56
PROVIDERS: ADMIT Family Medicine; ATTEND Family Medicine
DX: J18.9 Pneumonia, unspecified organism (principal); J44.0 Chronic obstructive pulmonary disease with (acute) lower respiratory infection; N17.9 Acute kidney failure, unspecified; R04.2 Hemoptysis; I12.9 Hypertensive chronic kidney disease with stage 1 through stage 4 chronic kidney disease, or unspecified chronic kidney disease; N18.30 Chronic kidney disease, stage 3 unspecified; I25.10 Atherosclerotic heart disease of native coronary artery without angina pectoris; I48.0 Paroxysmal atrial fibrillation; G25.81 Restless legs syndrome; K21.9 Gastro-esophageal reflux disease without esophagitis; E78.5 Hyperlipidemia, unspecified; N40.0 Benign prostatic hyperplasia without lower urinary tract symptoms; Z79.82 Long term (current) use of aspirin; Z79.02 Long term (current) use of antithrombotics/antiplatelets; Z79.51 Long term (current) use of inhaled steroids; I25.2 Old myocardial infarction; Z95.1 Presence of aortocoronary bypass graft; Z95.818 Presence of other cardiac implants and grafts; Z91.041 Radiographic dye allergy status; Z87.891 Personal history of nicotine dependence; Z82.49 Family history of ischemic heart disease and other diseases of the circulatory system
CPT/HCPCS: 36415; 71250; 80053; 82550; 84484; 85025; 85610; 85730; 86021; 86850; 86900; 87040; 93005; 94640; 94760; 94799; 99284; J0696; J2470; J7030; J7050